=== PATIENT | female | born 1950 | race Caucasian/White ===

== ENCOUNTER 2022-12-16 08:28 | Outpatient (CLI) | payer MEDICARE, OTHER | END 2022-12-16 08:29 | disposition home or self-care (01) | LOC: BICCT 08:28 | PROVIDERS: ATTEND Internal Medicine | DX: D12.6 Benign neoplasm of colon, unspecified (principal); K75.4 Autoimmune hepatitis; K74.60 Unspecified cirrhosis of liver | CPT/HCPCS: 74170; 82565 ==

== ENCOUNTER 2023-06-22 09:05 | Outpatient (CLI) | payer OTHER | END 2023-06-22 09:06 | disposition home or self-care (01) | LOC: BICULT 09:05 | PROVIDERS: ATTEND Internal Medicine | DX: D12.6 Benign neoplasm of colon, unspecified (principal); K75.4 Autoimmune hepatitis; K74.60 Unspecified cirrhosis of liver | CPT/HCPCS: 76705 ==

== ENCOUNTER 2023-12-07 08:12 | Day surgery (SDC) | payer OTHER ==
[2023-12-07 08:13] LABS: #Eosinphils 0.1 thou/uL (0.0-0.7); #Monocytes 0.5 thou/uL (0.11-0.59); #Neutrophils 2.7 thou/uL (1.40-6.50); %Basophils 0.5 % (0.0-1.0); %Eosinophils 2.1 % (0.0-10.0); %Lymphocytes 24.5 % (21.0-51.0); %Neutrophils 61.7 % (42.0-75.0); Hematocrit 38.5 % (36.0-47.0); Hemoglobin 12.7 g/dL (12.0-16.0); Mean Corpuscular Hemoglobin 32.3 pg (27.0-31.0); Mean Platelet Volume 9.8 fL (7.4-10.4); Platelet Count 168 10x3/uL (130-400); RBC Distribution Width 14.8 % (11.5-14.5); Red Blood Cell (RBC) Count 3.93 mill/uL (4.20-5.40); White Blood Cell (WBC) Count 4.4 10x3/uL (4.8-10.8)
[2023-12-07 08:26] LABS: INR-International Normal Ratio 0.9; Prothrombin Time 12.6 sec (12.0-14.7)
[2023-12-07 08:27] LABS: PTT 28.8 sec (22.9-36.1)
[2023-12-07] MEDS ORDERED: fentaNYL 50 mcg/mL 1 mL Vial ONE (09:54)
[2023-12-07] MEDS ORDERED: Midazolam HCl 2 mg/2 ml Vial ONE (09:54)
[2023-12-07] MEDS ORDERED: Lidocaine 1% PF 5 ML VIAL ONE (09:55)
[2023-12-07] MEDS ORDERED: Sodium Bicarbonate 0.5 MEQ/ML SDV 10 ML ONE (09:55)
== END 2023-12-07 14:15 | disposition home or self-care (01) ==
LOC: ULT 08:12
PROVIDERS: ATTEND Internal Medicine
PROC: 0FB10ZX Excision of Right Lobe Liver, Open Approach, Diagnostic (ICD-10-PCS; principal; 2023-12-07)
DX: K75.4 Autoimmune hepatitis (principal); K74.60 Unspecified cirrhosis of liver; D12.6 Benign neoplasm of colon, unspecified; I10 Essential (primary) hypertension
CPT/HCPCS: 47000; 76942; 85025; 85610; 85730; J3010; 88307; 88313; J2250

== ENCOUNTER 2025-09-20 11:54 | Outpatient (CLI) | payer OTHER | END 2025-09-20 11:55 | disposition home or self-care (01) | LOC: SCSRAD 11:54 | PROVIDERS: ATTEND Family Medicine | DX: S93.401A Sprain of unspecified ligament of right ankle, initial encounter (principal); S82.831A Other fracture of upper and lower end of right fibula, initial encounter for closed fracture ==